=== PATIENT | female | born 1965 | race Two or more races ===

== ENCOUNTER 2023-06-09 07:06 | Outpatient (RCR) | payer BC, SELFPAY | END 2023-06-09 23:59 | disposition home or self-care (01) | LOC: RST 07:06 | PROVIDERS: ATTENDING PHYSICIAN Physical Medicine & Rehabilitation; FAMILY PHYSICIAN Family Medicine | DX: I69.351 Hemiplegia and hemiparesis following cerebral infarction affecting right dominant side (principal); M54.9 Dorsalgia, unspecified; Z73.6 Limitation of activities due to disability; I69.328 Other speech and language deficits following cerebral infarction; I69.398 Other sequelae of cerebral infarction | CPT/HCPCS: 92507; 97110; 97112; 97163; 97167; 97530 ==

== ENCOUNTER 2023-06-29 15:37 | Emergency (ER) | payer BC, SELFPAY ==
[2023-06-29 15:41] VITALS: BP 160/104
--- NOTE | 2023-06-29 17:08 | ED.GENMED ---
History of Present Illness
General
Chief Complaint: Fall
Source: patient, spouse and family
Exam Limitations: none
Time Seen by Provider: 06/29/23 16:57
Nursing documentation reviewed up to this point in time: agreed with
Travel History
Have you had any contact with someone who has COVID-19?: No
Do you have any symptoms of coronavirus? Fever > 100 degrees, chills, cough, shortness of breath, sore throat, loss of taste or smell, muscle aches, or headache?: No
History of Present Illness
History of Present Illness:
57-year-old female with Jeri history of A-fib hypertension recent stroke currently on Eliquis presenting to the emergency department after mechanical fall at physical therapy where she hit her head. Denies additional symptoms otherwise claims
that the fall was slow and was not very abrupt and did not hit hard.
Past History
Past History
ED Past Medical History: Arrthythmia (Atrial fibrillation, with cardioversion December 2022), HTN and Other (Morbid obesity, back pain, migraine)
ED Past Surgical History: Other (Left finger fracture repair)
Social History
Tobacco: Non-smoker
Alcohol: None
Drug: None
Personal:
Living: with family
Employment: Employed
Family History
Family History: Other
Review of Systems
Review of Systems
Allergies reviewed?: Yes
All Other Systems: ROS reviewed and negative except as documented in HPI and ROS
Phy Exam
Physical Exam
Physical Exam:
GENERAL: Alert , in no apparent distress
EYE: pupils equal and reactive
NECK: Supple, no significant adenopathy. No posterior neck pain no midline pain
ENT: o/p clr, mmm.
CARDIAC: Regular rate and rhythm .
LUNGS: Clear breath sounds bilaterally, no acute respiratory distress, no wheezes/rales/rhonchi
ABDOMEN: Soft, without focal tenderness, no r/g, no cvat
NEUROLOGICAL: Alert and oriented, no focal neuro deficits 5-5 upper and lower extremity strength normal sensation were palpated bilaterally normal finger-nose and [id number] no pronator drift
SKIN: Warm and dry, skin intact.
MUSCULOSKELETAL: No edema, well perfused.
PSYCH: Normal and appropriate interaction.
Course
Orders/Labs/Results
Orders:
Orders
06/29/23 15:47
CT Head W/o Iv Contrast Urgent
Comment:
Reason For Exam: fall from standing, head strike, pt on eliquis.
Vital Signs
Initial and Last Documented VS:
Initial Vital Signs
Temp Pulse Resp BP Pulse Ox
97.8 F 76 18 160/104 98
06/29/23 15:41 06/29/23 15:41 06/29/23 15:41 06/29/23 15:41 06/29/23 15:41
Last Documented Vital Signs
Temp Pulse Resp BP Pulse Ox
97.8 F 76 18 160/104 98
06/29/23 15:41 06/29/23 15:41 06/29/23 15:41 06/29/23 15:41 06/29/23 15:41
MDM/Problems Addressed
MDM/Problems Addressed:
57-year-old female presenting to the emerged in after mechanical witnessed fall at physical therapy did hit her head patient is on Eliquis denies additional concerns at this time. CT scan without emergent findings patient stable for discharge
without evidence of any emergent pathology secondary to her fall. Will follow-up closely as an outpatient.
*Critical Care Note
Total Time (30-74mins, 75-104mins- exclusive of procedures): Not Applicable
ED Attending Note
-
Portions of this chart may have been created with voice recognition software.� Occasional wrong word or��sound alike� substitutions may have occurred due to the inherent limitations of voice recognition software.
Discharge Plan
Departure
Patient Disposition: Home (Routine Discharge)
Date of Disposition: 06/29/23
Time of Disposition: 17:12
Patient with high blood pressure during this ER visit?: No
Condition: Good
Covid-19: Not Applicable
Discharge Problem:
Fall
Instructions: Preventing falls in adults
Prescriptions:
No Action
furosemide 40 mg Tablet
40 mg PO DAILY Qty: 0 0RF
sennosides [Senna Lax] 8.6 mg Tablet
17.2 mg PO BID Qty: 0 0RF
polyethylene glycol 3350 [HealthyLax] 17 gram Powder In Packet
17 g PO DAILY Qty: 0 0RF
docusate sodium 100 mg Capsule
100 mg PO BID Qty: 0 0RF
gabapentin 300 mg Capsule
300 mg PO TID Qty: 0 0RF
cyanocobalamin (vitamin B-12) 1,000 mcg Tablet
1,000 mcg PO DAILY Qty: 0 0RF
tramadol 50 mg Tablet
100 mg PO Q8H PRN (Reason: MODERATE PAIN) Qty: 0 0RF
ascorbic acid (vitamin C) [Vitamin C] 500 mg Tablet
500 mg PO DAILY 30 Days Qty: 30 0RF
atorvastatin 40 mg Tablet
40 mg PO QPM 30 Days Qty: 30 0RF
lidocaine 4 % Adhesive Patch,Medicated
1 patch topical DAILY 30 Days Qty: 30 0RF
Rx Instructions:
Apply to lower back
carvedilol 3.125 mg Tablet
3.125 mg PO BID 30 Days Qty: 60 0RF
pantoprazole 40 mg Tablet,Delayed Release (Dr/Ec)
40 mg PO BID 30 Days Qty: 60 0RF
Eliquis 5 MG tablet
5 mg PO BID 30 Days Qty: 60 0RF
Referrals:
Reinaldo Berumen MD [Family Provider] -
Activity Restrictions/Additional Instructions:
You came to the emergency department today with after a fall. CT scan of your head was normal. Follow-up closely with your primary care doctor. Return to the emergency department for any worsening, new or concerning symptoms.
Interventions
Interventions:
*Risk Screen - Suicide Last Done: 06/29/23 15:41
*General Assessment Last Done: 06/29/23 15:41
*Neglect/Abuse Screening Last Done: 06/29/23 15:41
== END 2023-06-29 17:38 | disposition home or self-care (01) ==
LOC: EMR 15:37
PROVIDERS: EMERGENCY PHYSICIAN Emergency Medicine; FAMILY PHYSICIAN Family Medicine
DX: S09.90XA Unspecified injury of head, initial encounter (principal); W19.XXXA Unspecified fall, initial encounter; I48.91 Unspecified atrial fibrillation; I10 Essential (primary) hypertension; E66.01 Morbid (severe) obesity due to excess calories; G43.909 Migraine, unspecified, not intractable, without status migrainosus; M19.90 Unspecified osteoarthritis, unspecified site; Z79.01 Long term (current) use of anticoagulants; Z86.73 Personal history of transient ischemic attack (TIA), and cerebral infarction without residual deficits
CPT/HCPCS: 99284; 70450

== ENCOUNTER 2023-07-02 12:54 | Outpatient (RCR) | payer BC, SELFPAY | END 2023-07-02 23:59 | disposition home or self-care (01) | LOC: RST 12:54 | PROVIDERS: ATTENDING PHYSICIAN Physical Medicine & Rehabilitation; FAMILY PHYSICIAN Family Medicine | DX: I69.328 Other speech and language deficits following cerebral infarction (principal) | CPT/HCPCS: 92507; 97110; 97112; 97530; 97535 ==

== ENCOUNTER 2023-08-03 10:15 | Outpatient (RCR) | payer BC, SELFPAY | END 2023-08-03 23:59 | disposition home or self-care (01) | LOC: RST 10:15 | PROVIDERS: ATTENDING PHYSICIAN Physical Medicine & Rehabilitation; FAMILY PHYSICIAN Family Medicine | DX: I69.328 Other speech and language deficits following cerebral infarction (principal); I69.319 Unspecified symptoms and signs involving cognitive functions following cerebral infarction; Z73.6 Limitation of activities due to disability; I69.351 Hemiplegia and hemiparesis following cerebral infarction affecting right dominant side; I69.320 Aphasia following cerebral infarction; I69.314 Frontal lobe and executive function deficit following cerebral infarction; R26.89 Other abnormalities of gait and mobility | CPT/HCPCS: 92507; 96125; 97110; 97112; 97129; 97130; 97530; 97535 ==

== ENCOUNTER 2023-09-07 06:45 | Outpatient (RCR) | payer BC, SELFPAY | END 2023-09-07 23:59 | disposition home or self-care (01) | LOC: RST 06:45 | PROVIDERS: ATTENDING PHYSICIAN Physical Medicine & Rehabilitation; FAMILY PHYSICIAN Family Medicine | DX: I69.328 Other speech and language deficits following cerebral infarction (principal); I69.319 Unspecified symptoms and signs involving cognitive functions following cerebral infarction; I69.351 Hemiplegia and hemiparesis following cerebral infarction affecting right dominant side; I69.320 Aphasia following cerebral infarction; Z73.6 Limitation of activities due to disability; R26.89 Other abnormalities of gait and mobility | CPT/HCPCS: 92507; 97110; 97129; 97130; 97530; 97535 ==

== ENCOUNTER → 2024-02-14 11:27 | Outpatient (REF) | payer OTHER, SELFPAY | LOC: HWRAD 11:27 | PROVIDERS: ATTENDING PHYSICIAN Internal Medicine Gastroenterology; FAMILY PHYSICIAN Family Medicine | DX: D50.9 Iron deficiency anemia, unspecified (principal) | CPT/HCPCS: 74261 ==

== ENCOUNTER → 2025-05-01 14:57 | Outpatient (REF) | payer OTHER, SELFPAY | LOC: HWRCS 14:57 | PROVIDERS: ATTENDING PHYSICIAN Internal Medicine Cardiovascular Disease; FAMILY PHYSICIAN Family Medicine | DX: I48.0 Paroxysmal atrial fibrillation (principal); I10 Essential (primary) hypertension; D50.9 Iron deficiency anemia, unspecified; Z86.73 Personal history of transient ischemic attack (TIA), and cerebral infarction without residual deficits | CPT/HCPCS: 93306 ==